=== PATIENT | female | born 1980 | race Caucasian/White ===

== ENCOUNTER 2017-07-19 10:28 | Emergency (ER) | payer OTHER ==
[2017-07-19 11:06] LABS: APPEARANCE CLEAR (CLEAR); BILIRUBIN NEGATIVE (NEGATIVE); COLOR YELLOW (YELLOW); GLUCOSE NEGATIVE (NEGATIVE); KETONE NEGATIVE (NEGATIVE); NITRITE NEGATIVE (NEGATIVE); PROTEIN NEGATIVE (NEGATIVE); UROBILINOGEN NORMAL (NORMAL)
[2017-07-19 11:14] LABS: BASOPHILS 0.2 % (0-2); EOSINOPHILS 1.8 % (0-7); HEMATOCRIT 44.1 % (36.0-48.0); HEMOGLOBIN 15.7 g/dL (12-16); IMMATURE GRANULOCYTES 0.3 % (0-5); LYMPHOCYTES 13.4 % (15-50); MCH 31.2 pg (26.0-34.0); MCHC 35.6 g/dL (31.0-37.0); MCV 87.5 fL (80.0-100.0); MEAN PLATELET VOLUME 10.6 fL (7.4-10.4); MONOCYTES 8.1 % (2-11); NEUTROPHILS 76.2 % (40-80); PLATELET COUNT 209 10x3/uL (130-400); RBC 5.04 10x6/uL (4.00-5.40); RDW 11.9 % (11.5-14.5)
[2017-07-19 11:40] LABS: ALBUMIN 3.7 g/dL (3.4-5.0); ALKALINE PHOSPHATASE 92 U/L (46-116); ALT (SGPT) 19 U/L (10-68); C-REACTIVE PROTEIN 4.3 mg/dL (0.0-0.9); CALC OSMOLALITY 275 mosm/kg (275-300); CALCIUM 8.8 mg/dL (8.5-10.1); CHLORIDE - SERUM 104 mmol/L (98-107); CREATININE - SERUM 0.7 mg/dL (0.6-1.3); GLUCOSE 90 mg/dL (74-106); POTASSIUM - SERUM 3.9 mmol/L (3.5-5.1); PROTEIN - SERUM 7.3 g/dL (6.4-8.2); SODIUM 139 mmol/L (136-145); UREA NITROGEN 8 mg/dL (7-18); eGFR NON AFRICAN AMERICAN > 90 mL/min (90-120)
[2017-07-19 12:08] LABS: HCG URINE NEGATIVE (NEGATIVE)
== END 2017-07-19 13:19 | disposition home or self-care (01) ==
LOC: D.ER 10:28
PROVIDERS: Emergency Medicine; Nurse Practitioner Family
DX: R10.31 Right lower quadrant pain (principal); N83.201 Unspecified ovarian cyst, right side; K59.00 Constipation, unspecified; I10 Essential (primary) hypertension

== ENCOUNTER 2018-01-10 08:00 | Observation (INO) | payer BC ==
[2018-01-09 10:58] LABS: BASOPHILS 0.2 % (0-2); EOSINOPHILS 3.3 % (0-7); HEMATOCRIT 46.4 % (36.0-48.0); HEMOGLOBIN 16.5 g/dL (12-16); IMMATURE GRANULOCYTES 0.2 % (0-5); LYMPHOCYTES 19.6 % (15-50); MCH 31.3 pg (26.0-34.0); MCHC 35.6 g/dL (31.0-37.0); MCV 87.9 fL (80.0-100.0); MEAN PLATELET VOLUME 10.5 fL (7.4-10.4); MONOCYTES 6.3 % (2-11); NEUTROPHILS 70.4 % (40-80); PLATELET COUNT 229 10x3/uL (130-400); RBC 5.28 10x6/uL (4.00-5.40)
[2018-01-09 11:24] LABS: CALC OSMOLALITY 276 mosm/kg (275-300); CALCIUM 8.5 mg/dL (8.5-10.1); CARBON DIOXIDE 27.9 mmol/L (21.0-32.0); CHLORIDE - SERUM 104 mmol/L (98-107); CREATININE - SERUM 0.7 mg/dL (0.6-1.3); GLUCOSE 91 mg/dL (74-106); POTASSIUM - SERUM 3.8 mmol/L (3.5-5.1); SODIUM 140 mmol/L (136-145); UREA NITROGEN 8 mg/dL (7-18); eGFR NON AFRICAN AMERICAN > 90 mL/min (90-120)
[~2018-01-10] VITALS: Ht 167.6 cm; Wt 70.9 kg
--- NOTE | ~2018-01-10 | OP ---
PATIENT NAME: BEL GARCÍA MEDICAL RECORD: [id number] LOCATION:[id number] ADMISSION DATE:01/10/18 SURGEON: JOSÉ FAYE MD DATE OF OPERATION: 01/10/2018 PREOPERATIVE DIAGNOSES: 1. Multinodular goiter. 2. Hypertension. 3. Anxiety disorder. POSTOPERATIVE DIAGNOSES: 1. Multinodular goiter. 2. Hypertension. 3. Anxiety disorder. PROCEDURE: Total thyroidectomy. SURGEON: José Faye MD REPORT OF PROCEDURE: The patient's neck was prepped and draped in sterile fashion. A transverse incision was made through a crease a couple of fingerbreadths above the sternal notch. Electrocautery was used to dissect through the subcutaneous tissues and flaps were made over top of the strap muscles superiorly and inferiorly. We then penetrated the median raphe and entered the space overlying the patient's trachea. The patient's thyroid was easily visualized. We approached the left side first. We initially peeled off the strap muscles from the anterior surface of the thyroid, going out as laterally as possible. We then dissected out the superior blood vessels and these were tied off with 3-0 silk ties. As we continued mobilization of the thyroid gland, we continued from the top down on his lateral aspect, took down the middle thyroidal vessels again using 3-0 silk ties, and then eventually got the inferior thyroidal vessels again with 3-0 silk ties. We then dissected off the posterior aspect of the thyroid off of the patient's trachea. Once we had the left side of the thyroid completely freed up, it was pushed back into position. We then approached the right side of thyroid and again peeled the anterior aspect of the thyroid off the posterior aspect of the strap muscles. We then found the vessels on the superior aspect of the thyroid and these were clamped and tied with 3-0 silks. We continued our dissection down to the lateral aspect and took out the medial thyroidal vessels and then eventually ligated the inferior thyroidal vessels. The posterior aspect of the thyroid was dissected free from its surrounding attachments to the trachea and eventually the thyroid was free other than extension of the isthmus over the superior aspect of the trachea. This isthmus was dissected free and ligated again with 3-0 silk tie. The thyroid was sent off for permanent specimen. We then inspected the area and there was one small bleeding vessel on the right side of the thyroidal space and this was tied off with 3-0 silk. We did not see any other evidence of any bleeding. We irrigated out the wound with normal saline and then placed thrombin-soaked Gelfoam into the spaces. The strap muscles were reapproximated with running 2-0 Vicryl. The subcutaneous tissues and platysma were reapproximated with interrupted 3-0 Vicryl. The skin incisions were closed with running subcutaneous 5-0 Monocryl. A 10 mL of 0.25% Marcaine with epinephrine was infused into the surrounding tissues. The wound was dressed appropriately. COMPLICATIONS: None. OPERATIVE REPORT [id number] BEL GARCÍA CONDITION: Stable. ANESTHESIA: General endotracheal and local. BLOOD LOSS: 30 mL. TRANSINT:[id number] Voice Confirmation ID: [id number] DOCUMENT ID: [id number] JOSÉ FAYE MD at 1714 CC: MIHIR FLETCHER MD [id number] DICTATION DATE: 01/10/18 1535 WAITER/WAITRESS TAVERN: 01/10/18 1551 DIS IN 01/11/18 [facility] [address] [place] [address]
[~2018-01-10 08:00] MED LIST: ATIVAN1 MG PO
[2018-01-10] MEDS ORDERED: CAMRESE 0.15-01 EACH PO (10:40)
[2018-01-10] MEDS ORDERED: TOPAMAX50 MG PO (10:41)
[2018-01-10] MEDS ORDERED: BUSPAR10 MG PO (10:41)
[2018-01-10] MEDS ORDERED: METOPROLOL TART50 MG PO (10:42)
[2018-01-10] MEDS ORDERED: OMEPRAZOLE CAP 20M (10:43)
[2018-01-10] MEDS ORDERED: TOPIRAMATE (10:43)
[2018-01-10] MEDS ORDERED: PEPCID AC20 MG PO (10:43)
[2018-01-10] MEDS ORDERED: BUPROPION XL300 MG PO (10:44)
[2018-01-10] MEDS ORDERED: LEVOTHYROXINE100 MCG PO (10:45)
[2018-01-10 10:59] VITALS: BP 124/79; BMI 25.4
[2018-01-10 16:42] VITALS: BP 112/72
[2018-01-10 16:48] VITALS: BP 129/86
[2018-01-10 20:00] VITALS: BP 140/89
[2018-01-11 04:00] VITALS: BP 110/79
[2018-01-11 04:36] VITALS: BP 140/89; Ht 167.6 cm; Wt 70.9 kg
[2018-01-11 08:15] VITALS: BP 114/82
[2018-01-11] MEDS ORDERED: NORCO 10-325 TA1 TAB PO (09:49)
== END 2018-01-11 12:38 | disposition home or self-care (01) ==
LOC: D.SDCHOLD 08:00 → D.MS 08:50 → D.SDCHOLD 08:50 → D.MS 08:50 → D.SDCHOLD 08:50 → OBSVTIME 15:27 → D.MS 16:29
PROVIDERS: Surgery
DX: E04.2 Nontoxic multinodular goiter (principal); I10 Essential (primary) hypertension; F41.9 Anxiety disorder, unspecified